=== PATIENT | male | born 1960 | race Caucasian/White ===

== ENCOUNTER 2016-08-25 11:37 | Day surgery (SDC) | payer MEDICARE, MEDICAID ==
[~2016-08-25 11:37] MED LIST: ABILIFY5 M1 PO; ANTACID EXTRA1 EAC1 PO; ARTIFICIAL TEA1 EAC2 OP; ARTIFICIAL TEAR1512 OP; COLACE100 M1 PO; DEPAKOTE500 M1 PO; DIOVAN HCT 80-1 EACH PO; FLOVENT HFA1 PUFF INH; OMEPRAZOLE20 M3 PO; OS-CAL 500+D31 EAC1 PO; POTASSIUM CHLO20 ME3 PO; PRISTIQ ER100 MG PO; SALINE NASAL SP30 M1; SIMETHICONE80 M3 PO; SINGULAIR10 M1 PO; SPIRIVA18 MC1 INH; SYMBICORT 80-41 PUFF INH; SYNTHROID100 MC1 PO; THERAGRAN-M PR1 EAC1 PO; TOLNAFTATE TP; TOPROL XL100 M1 PO; TRICOR48 M2 PO; TYLENOL325 M2 PO; VENTOLIN HFA18 G2 PO; ZOCOR40 M1 PO
[2016-08-25 13:01] LABS: ANION GAP 13 mmol/L (0-20); BLOOD UREA NITROGEN 9 mg/dl (6-24); CALCIUM 9.3 mg/dl (8.5-10.5); CARBON DIOXIDE-VENOUS 27 mmol/L (22-32); CHLORIDE 103 mmol/l (96-110); CREATININE 0.94 mg/dl (0.60-1.30); GLUCOSE 83 mg/dL (70-110); POTASSIUM 3.8 mmol/L (3.7-5.1); SODIUM 139 mmol/L (135-145); eGFR VALUE FOR BLACK >90 mL/Min
== END 2016-08-25 14:40 ==
LOC: SHSC 11:37 → ENDOS 13:00
PROVIDERS: Anesthesiology
PROC: 0DBL8ZZ Excision of Transverse Colon, Via Natural or Artificial Opening Endoscopic (ICD-10-PCS; principal; 2016-08-25)
DX: K63.5 Polyp of colon (principal); K57.30 Diverticulosis of large intestine without perforation or abscess without bleeding; I25.10 Atherosclerotic heart disease of native coronary artery without angina pectoris; I10 Essential (primary) hypertension; G40.909 Epilepsy, unspecified, not intractable, without status epilepticus; E03.9 Hypothyroidism, unspecified; F31.9 Bipolar disorder, unspecified; F65.4 Pedophilia; H26.9 Unspecified cataract; J45.909 Unspecified asthma, uncomplicated; K21.9 Gastro-esophageal reflux disease without esophagitis; F71 Moderate intellectual disabilities; Z79.899 Other long term (current) drug therapy; Z91.048 Other nonmedicinal substance allergy status; Z86.010 Personal history of colon polyps; Z87.11 Personal history of peptic ulcer disease; Z85.828 Personal history of other malignant neoplasm of skin; Z87.891 Personal history of nicotine dependence; Z80.0 Family history of malignant neoplasm of digestive organs; Z98.890 Other specified postprocedural states